=== PATIENT | male | born 1950 | race Caucasian/White ===

== ENCOUNTER → 2023-06-06 08:29 | Outpatient (REF) | payer MEDICARE, SELFPAY ==
[2023-06-06 13:00] LABS: % Basophils 0.7 % (0-2); % Eosinophils 4.1 % (0-6); % Immature Granulocytes 0.4 % (0-0.5); % Lymphocytes 12.1 % (20.5-51.1); % Monocytes 9.4 % (1.7-9.3); % Neutrophils 73.3 % (42.2-75.2); Absolute Eosinophils 0.2 10^3/uL (0-0.7); Absolute Lymphocytes 0.7 10^3/uL (1.2-3.4); Absolute Monocytes 0.5 10^3/uL (0.1-0.6); Absolute Neutrophils 4.1 10^3/uL (1.4-6.5); Hematocrit 40.9 % (39.0-52.0); Hemoglobin 13.9 g/dL (13.0-18.0); Mean Corpuscular Hgb 29.7 pg (27.0-31.0); Mean Corpuscular Volume 87.4 fL (80.0-94.0); Mean Platelet Volume 11.6 fL (7.4-10.4); Nucleated Red Blood Cells % 0 % (-); Platelet Count 210 10^3/uL (130-400); Red Blood Cell Count 4.68 10^6/uL (4.70-6.10); Red Cell Dist. Width 13.4 % (11.5-14.5); White Blood Cell Count 5.6 10^3/uL (4.8-10.8)
[2023-06-06 13:42] LABS: ALT (SGPT) 31 U/L (0-50); AST (SGOT) 26 U/L (17-59); Alkaline Phosphatase 106 U/L (38-126); Blood Urea Nitrogen 29 mg/dl (9-20); Calcium 9.4 mg/dl (8.4-10.2); Carbon Dioxide 28 mmol/L (22-30); Chloride 103 mmol/L (98-107); Glucose 109 mg/dl (70-99); HDL Cholesterol 42 mg/dl; LDL Cholesterol, Calculated 55 mg/dl; Potassium 4.3 mmol/L (3.5-5.1); Sodium 139 mmol/L (135-145); Total Bilirubin 0.6 mg/dl (0.2-1.3); Total Cholesterol 115 mg/dl (50-199); Total Protein 6.4 g/dl (6.3-8.2); Triglyceride 91 mg/dl (10-149); Very Low Density Lipoprotein 18 mg/dl (0-30); eGFR > 60.00
[2023-06-06 14:07] LABS: TSH Reflex To Free T4 2.55 uIU/ml (0.47-4.68)
[2023-06-06 14:17] LABS: Glycohemoglobin (HgbA1c) 6.7 % (4.0-5.6)
[2023-06-06 14:23] LABS: Microalbumin, Random Urine 4.5 mg/dl (0.6-1.7)
[2023-06-06 21:50] LABS: Vitamin B12 334 pg/ml (239-931)
== END ==
LOC: HWLAB 08:29
PROVIDERS: ATTENDING PHYSICIAN Family Medicine
DX: K59.00 Constipation, unspecified (principal); L30.9 Dermatitis, unspecified; E11.8 Type 2 diabetes mellitus with unspecified complications; I10 Essential (primary) hypertension
CPT/HCPCS: 36415; 80053; 80061; 82043; 82607; 83036; 84443; 85025

== ENCOUNTER → 2023-09-22 06:15 | Day surgery (SDC) | payer MEDICARE, SELFPAY ==
[2023-09-22 07:19] LABS: Glucose - Point of Care 112 mg/dl (70-99)
== END ==
LOC: GI 06:15
PROVIDERS: ATTENDING PHYSICIAN Internal Medicine
DX: Z12.11 Encounter for screening for malignant neoplasm of colon (principal); K57.30 Diverticulosis of large intestine without perforation or abscess without bleeding; K64.8 Other hemorrhoids; K62.89 Other specified diseases of anus and rectum; D12.3 Benign neoplasm of transverse colon; D12.4 Benign neoplasm of descending colon; Z86.010 Personal history of colon polyps
CPT/HCPCS: 45385; 88305; 82962

== ENCOUNTER → 2023-11-24 08:44 | Outpatient (REF) | payer MEDICARE, SELFPAY | LOC: DHVS 08:44 | PROVIDERS: ATTENDING PHYSICIAN Physician Assistant; FAMILY PHYSICIAN Family Medicine | DX: I73.9 Peripheral vascular disease, unspecified (principal) | CPT/HCPCS: 93922; 93925 ==

== ENCOUNTER → 2024-06-11 08:15 | Outpatient (REF) | payer OTHER, SELFPAY | LOC: HWRAD 08:15 | PROVIDERS: ATTENDING PHYSICIAN Podiatrist Foot & Ankle Surgery; FAMILY PHYSICIAN Family Medicine | DX: M72.2 Plantar fascial fibromatosis (principal) | CPT/HCPCS: 73630 ==

== ENCOUNTER → 2024-10-23 07:03 | Outpatient (REF) | payer OTHER, SELFPAY ==
[2024-10-23 09:44] LABS: Hematocrit 37.9 % (39.0-52.0); Hemoglobin 12.9 g/dL (13.0-18.0); Mean Corp Hgb Conc. 34.0 g/dL (33.0-37.0); Mean Corpuscular Volume 85.4 fL (80.0-94.0); Nucleated Red Blood Cells % 0 % (-); Platelet Count 286 10^3/uL (130-400); Red Cell Dist. Width 13.2 % (11.5-14.5)
[2024-10-23 09:53] LABS: Iron 72 ug/dl (49-181)
[2024-10-23 10:02] LABS: Total Iron Binding Capacity 296 ug/dl (261-462)
[2024-10-23 10:29] LABS: Ferritin 205.0 ng/ml (17.9-464.0)
== END ==
LOC: HWLAB 07:03
PROVIDERS: ATTENDING PHYSICIAN Family Medicine
DX: D64.9 Anemia, unspecified (principal)
CPT/HCPCS: 36415; 82728; 83540; 83550; 85025

== ENCOUNTER → 2024-12-17 07:49 | Outpatient (REF) | payer OTHER, SELFPAY | LOC: RAD 07:49 | PROVIDERS: ATTENDING PHYSICIAN Surgery Vascular Surgery; FAMILY PHYSICIAN Family Medicine | DX: I73.9 Peripheral vascular disease, unspecified (principal) | CPT/HCPCS: 93922 ==

== ENCOUNTER → 2025-01-09 06:55 | Outpatient (REF) | payer OTHER, SELFPAY ==
[2025-01-09 10:14] LABS: Hematocrit 39.9 % (39.0-52.0); Hemoglobin 13.6 g/dL (13.0-18.0); Mean Corp Hgb Conc. 34.1 g/dL (33.0-37.0); Mean Corpuscular Volume 85.6 fL (80.0-94.0); Nucleated Red Blood Cells % 0 % (-); Platelet Count 214 10^3/uL (130-400); Red Cell Dist. Width 13.8 % (11.5-14.5)
[2025-01-09 11:07] LABS: ALT (SGPT) 34 U/L (0-50); AST (SGOT) 26 U/L (17-59); HDL Cholesterol 44 mg/dl; LDL Cholesterol, Calculated 49 mg/dl; Very Low Density Lipoprotein 18 mg/dl (0-30)
== END ==
LOC: HWLAB 06:55
PROVIDERS: ATTENDING PHYSICIAN Internal Medicine; FAMILY PHYSICIAN Family Medicine
DX: D64.9 Anemia, unspecified (principal); I73.9 Peripheral vascular disease, unspecified
CPT/HCPCS: 36415; 80061; 84450; 84460; 85025